=== PATIENT | male | born 1975 | race Caucasian/White ===

== ENCOUNTER 2016-10-26 01:50 | Inpatient (IN) | payer OTHER ==
[2016-10-26] VITALS (12 sets, daily range): BP systolic 114–123; BP diastolic 65–80; PULSE 56–85; RESP 13–19; TEMP 98.1–99.1; O2SAT 97–99
[2016-10-26] MEDS ORDERED: SODIUM CHLOR 0.9% 1000 ML INJ 1,000 ML IV SCH (02:05)
[2016-10-26] MEDS ORDERED: SODIUM CHLORIDE 0.9% FLUSH 5 ML FLUSH IVF PRN ×2 (02:15→03:30)
[2016-10-26 02:26] LABS: AUTOMATED NEUTROPHIL # 12.3 TH/MM3 (1.8-7.7); BASOPHIL # 0.1 TH/MM3 (0-0.2); BASOPHIL % 0.4 % (0.0-2.0); EOSINOPHIL % 0.1 % (0.0-4.0); HEMATOCRIT 41.2 % (39.0-51.0); HEMO FLAGS DIFF FINAL; LYMPH % 6.3 % (9.0-44.0); LYMPHOCYTE # 0.9 TH/MM3 (1.0-4.8); MEAN CELL VOLUME 89.2 FL (80.0-100.0); MEAN CORPUSCULAR HEMOGLOBIN 30.2 PG (27.0-34.0); MEAN CORPUSCULAR HGB CONC 33.8 % (32.0-36.0); MONO % 7.4 % (0.0-8.0); NEUT % 85.8 % (16.0-70.0); PLATELET COUNT 278 TH/MM3 (150-450); RED BLOOD COUNT 4.61 MIL/MM3 (4.50-5.90); RED CELL DISTRIBUTION WIDTH 12.8 % (11.6-17.2); WHITE BLOOD COUNT 14.3 TH/MM3 (4.0-11.0)
[2016-10-26 02:48] LABS: ALT (GPT) 30 U/L (12-78); ANION GAP 9 MEQ/L (5-15); AST (GOT) 30 U/L (15-37); BICARBONATE 27.8 MEQ/L (21.0-32.0); BLOOD UREA NITROGEN 17 MG/DL (7-18); CHLORIDE 105 MEQ/L (98-107); GLOMERULAR FILTRATION RATE 90 ML/MIN (>89); POTASSIUM 3.7 MEQ/L (3.5-5.1); SODIUM (NA) 142 MEQ/L (136-145)
[2016-10-26 02:52] LABS: ALKALINE PHOSPHATASE 73 U/L (45-117); CREATINE KINASE 516 U/L (39-308); TOTAL BILIRUBIN ADULT 0.3 MG/DL (0.2-1.0)
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
[2016-10-26 03:04] LABS: CKMB 4.6 NG/ML (0.5-3.6)
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
[2016-10-26] MEDS ORDERED: ACETAMINOPHEN 325 MG TAB PO PRN (03:30)
[2016-10-26] MEDS ORDERED: PROMETHAZINE INJ 25 MG/ML VIAL IM PRN (03:30)
[2016-10-26] MEDS ORDERED: LABETALOL HCL 100 MG/20 ML VIAL IV PRN (03:30)
[2016-10-26] MEDS ORDERED: ONDANSETRON HCL 4 MG/2 ML VIAL IV PRN (03:30)
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
[2016-10-26] MEDS: NS + KCL 20 MEQ INJ 1,000 ML IV SCH ×3 (06:32→23:31)
[2016-10-26] MEDS: DOCUSATE SODIUM 100 MG CAP PO SCH ×2 (08:30→21:00)
[2016-10-26] MEDS: PANTOPRAZOLE SOD 40 MG DELAYED RELEASE TAB PO SCH (08:30)
[2016-10-26] MEDS: SODIUM CHLORIDE 0.9% FLUSH 5 ML FLUSH IVF SCH ×2 (08:30→22:23)
[2016-10-26] MEDS: ACETAMINOPHEN/HYDROcodone 325 MG/10 MG TAB PO PRN (11:23)
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
[2016-10-27] VITALS (12 sets, daily range): BP systolic 111–123; BP diastolic 65–75; PULSE 56–84; RESP 15–21; TEMP 97.8–99.3; O2SAT 96–99
[2016-10-27] MEDS: ACETAMINOPHEN/HYDROcodone 325 MG/10 MG TAB PO PRN ×2 (04:35→21:21)
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
[2016-10-27 06:25] LABS: AUTOMATED NEUTROPHIL # 4.7 TH/MM3 (1.8-7.7); BASOPHIL # 0.1 TH/MM3 (0-0.2); EOSINOPHIL # 0.1 TH/MM3 (0-0.4); EOSINOPHIL % 1.4 % (0.0-4.0); HEMATOCRIT 38.2 % (39.0-51.0); HEMO FLAGS DIFF FINAL; LYMPH % 21.6 % (9.0-44.0); LYMPHOCYTE # 1.6 TH/MM3 (1.0-4.8); MEAN CELL VOLUME 89.2 FL (80.0-100.0); MEAN CORPUSCULAR HEMOGLOBIN 30.2 PG (27.0-34.0); MEAN CORPUSCULAR HGB CONC 33.8 % (32.0-36.0); MONO % 13.3 % (0.0-8.0); NEUT % 62.7 % (16.0-70.0); PLATELET COUNT 260 TH/MM3 (150-450); RED BLOOD COUNT 4.29 MIL/MM3 (4.50-5.90); RED CELL DISTRIBUTION WIDTH 13.1 % (11.6-17.2); WHITE BLOOD COUNT 7.5 TH/MM3 (4.0-11.0)
[2016-10-27 06:39] LABS: APTT (PATIENT) 30.4 SEC (24.3-30.1); INTERNATIONAL NORMALIZED RATIO 1.1 RATIO; PROTHROMBIN TIME - PATIENT 11.7 SEC (9.8-11.6)
[2016-10-27 07:00] LABS: BICARBONATE 26.3 MEQ/L (21.0-32.0); POTASSIUM 3.8 MEQ/L (3.5-5.1)
[2016-10-27] MEDS: PANTOPRAZOLE SOD 40 MG DELAYED RELEASE TAB PO SCH (08:09)
[2016-10-27] MEDS: REMOVE OLD PATCH TD SCH (08:09)
[2016-10-27] MEDS: NICOTINE 7 MG/24 HR PATCH TD SCH (08:09)
[2016-10-27] MEDS: SODIUM CHLORIDE 0.9% FLUSH 5 ML FLUSH IVF SCH ×2 (08:10→21:20)
[2016-10-27] MEDS: DOCUSATE SODIUM 100 MG CAP PO SCH ×2 (08:10→21:21)
[2016-10-27] MEDS: NS + KCL 20 MEQ INJ 1,000 ML IV SCH (09:26)
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
[2016-10-27] MEDS: IBUPROFEN 400 MG TAB PO SCH ×2 (15:05→21:21)
[2016-10-28] VITALS (8 sets, daily range): BP systolic 117–136; BP diastolic 71–82; PULSE 52–80; RESP 18–22; TEMP 98.1–99; O2SAT 96–98
[2016-10-28 05:40] LABS: BICARBONATE 28.5 MEQ/L (21.0-32.0); POTASSIUM 4.1 MEQ/L (3.5-5.1)
[2016-10-28] MEDS: IBUPROFEN 400 MG TAB PO SCH ×3 (06:00→21:24)
[2016-10-28] MEDS: NICOTINE 7 MG/24 HR PATCH TD SCH (09:15)
[2016-10-28] MEDS: PANTOPRAZOLE SOD 40 MG DELAYED RELEASE TAB PO SCH (09:15)
[2016-10-28] MEDS: DOCUSATE SODIUM 100 MG CAP PO SCH ×2 (09:15→21:00)
[2016-10-28] MEDS: SODIUM CHLORIDE 0.9% FLUSH 5 ML FLUSH IVF SCH ×2 (09:23→21:22)
[2016-10-28] MEDS: REMOVE OLD PATCH TD SCH (09:24)
[2016-10-28] MEDS: ACETAMINOPHEN/HYDROcodone 325 MG/10 MG TAB PO PRN ×3 (09:28→18:48)
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
[2016-10-29 00:30] VITALS: BP 117/66; PULSE 73; RESP 17; TEMP 98.6; O2SAT 96
[2016-10-29 04:00] VITALS: BP 128/75; PULSE 58; RESP 18; TEMP 97; O2SAT 97
[2016-10-29] MEDS: IBUPROFEN 400 MG TAB PO SCH ×2 (06:26→14:55)
[2016-10-29] MEDS: PANTOPRAZOLE SOD 40 MG DELAYED RELEASE TAB PO SCH (08:37)
[2016-10-29] MEDS: NICOTINE 7 MG/24 HR PATCH TD SCH (08:38)
[2016-10-29] MEDS: SODIUM CHLORIDE 0.9% FLUSH 5 ML FLUSH IVF SCH (08:38)
[2016-10-29] MEDS: REMOVE OLD PATCH TD SCH (08:38)
[2016-10-29] MEDS: DOCUSATE SODIUM 100 MG CAP PO SCH (08:38)
[2016-10-29 08:48] VITALS: BP 134/60; PULSE 78; RESP 18; TEMP 98; O2SAT 96
[2016-10-29] MEDS: ACETAMINOPHEN/HYDROcodone 325 MG/10 MG TAB PO PRN (09:04)
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
[2016-10-29 12:58] VITALS: BP 105/66; PULSE 81; RESP 18; TEMP 98.8; O2SAT 96
== END 2016-10-29 15:52 | DRG 87 ==
LOC: NEPC 01:50 → NEDA 03:29 → N03A 04:58 → N05A 10-28 10:09
PROVIDERS: ADMIT Neurological Surgery; ATTEND Neurological Surgery
DX: S06.5X0A Traumatic subdural hemorrhage without loss of consciousness, initial encounter (principal); S06.4X0A Epidural hemorrhage without loss of consciousness, initial encounter; F17.210 Nicotine dependence, cigarettes, uncomplicated; W19.XXXA Unspecified fall, initial encounter
CPT/HCPCS: 70450; 70486; 71010; 72125; 73564; 80048; 80053; 80320; 82550; 82552; 84484; 85025; 85610; 85730; 87641; 94150; 96360; G0479; J3480; J7030